=== PATIENT | female | born 1990 | race Caucasian/White ===

== ENCOUNTER 2018-02-17 23:02 | Observation (INO) | payer SELFPAY ==
--- NOTE | 2018-02-17 23:39 | ER Document Report ---
ED General - General Chief Complaint: Abdominal Pain Stated Complaint: ABDOMINAL PAIN Time Seen by Provider: 02/17/18 23:26 Mode of Arrival: Ambulatory Information source: Patient Notes: 27-year-old female with no reported past medical history presents with complaint of sudden onset of right lower quadrant pain that occurred 45 minutes prior to arrival. Patient states that she is currently moving and they have been moving and packing all day. She states that just prior to arrival she felt a sharp, stabbing pain that doubled her over in pain. Patient denies any prior similar symptoms. She denies any fever, chills, nausea, vomiting, dysuria , hematuria, vaginal discharge. Patient is currently sexually active with her and not on control. Her last menstrual period was 02/06/2018. She has not tried any medication for this. - HPI Onset: Just prior to arrival Onset/Duration: Sudden Quality of pain: Stabbing Severity: Moderate Pain Level: 2 Associated symptoms: Nausea. denies: Chest pain, Diarrhea, Fever, Vomiting, Shortness of breath Exacerbated by: Movement Relieved by: Remaining still Similar symptoms previously: No Recently seen / treated by doctor: No - Related Data Allergies/Adverse Reactions: naproxen [From Aleve] Allergy (Verified 02/17/18 23:08) Penicillins Allergy (Verified 02/17/18 23:08) Past Medical History - General Information source: Patient, Relative, [facility] Records - Social History Smoking Status: Never Smoker Frequency of alcohol use: Occasional Drug Abuse: None Lives with: Spouse/Significant other Family History: Reviewed & Not Pertinent Patient has suicidal ideation: No Patient has homicidal ideation: No - Medical History Medical History: Negative Review of Systems - Review of Systems Constitutional: denies: Fever, Weakness EENT: denies: Blurred vision Cardiovascular: denies: Chest pain, Palpitations, Syncope Respiratory: denies: Cough, Short of breath Gastrointestinal: Abdominal pain, Nausea. denies: Vomiting, Constipation Genitourinary: denies: Dysuria, Discharge, Flank pain, Hematuria Female Genitourinary: denies: Vaginal discharge, Vaginal bleeding Musculoskeletal: denies: Back pain Skin: denies: Rash Hematologic/Lymphatic: denies: Easy bruising Neurological/Psychological: denies: Confusion, Lost consciousness, Headaches -: Yes All other systems reviewed and negative Physical Exam - Vital signs Vitals: Temp Pulse Resp BP Pulse Ox 98.3 F 79 20 134/75 H 99 02/17/18 23:18 02/17/18 23:18 02/17/18 23:18 02/17/18 23:18 02/17/18 23:18 - Notes Notes: PHYSICAL EXAMINATION: GENERAL: Well-appearing, well-nourished and in no acute distress. HEAD: Atraumatic, normocephalic. EYES: Pupils equal round and reactive to light, extraocular movements intact, conjunctiva are normal. ENT: Nares patent, oropharynx clear without exudates. Moist mucous membranes. NECK: Normal range of motion, supple without lymphadenopathy LUNGS: Breath sounds clear to auscultation bilaterally and equal. No wheezes rales or rhonchi. HEART: Regular rate and rhythm without murmurs ABDOMEN: Soft, nontender, nondistended abdomen. No guarding, no rebound. No masses appreciated. Female : No external vaginal lesions, thick white discharge, no vaginal lacerations, no cervical motion tenderness. No adnexal tenderness or fullness. no vaginal bleeding. Os closed. Musculoskeletal: Normal range of motion, no pitting or edema. No cyanosis. NEUROLOGICAL: Cranial nerves grossly intact. Normal speech, normal gait. Normal sensory, motor exams PSYCH: Normal mood, normal affect. SKIN: Warm, Dry, normal turgor, no rashes or lesions noted. Course - Re-evaluation Re-evalutation: Laboratory 02/18/18 02/18/18 02/18/18 00:09 00:09 00:09 Urine Color YELLOW Urine Appearance SLIGHTLY-CLOUDY Urine pH 5.0 Ur Specific [place] 1.019 Urine Protein NEGATIVE Urine Glucose (UA) NEGATIVE Urine Ketones TRACE H Urine Blood SMALL H Urine Nitrite NEGATIVE Urine Bilirubin NEGATIVE Urine Urobilinogen NEGATIVE Ur Leukocyte Esterase TRACE H Urine WBC (Auto) 1 Urine RBC (Auto) 4 Urine Bacteria (Auto) TRACE Squamous Epi Cells Auto 3 Urine Mucus (Auto) RARE Urine Ascorbic Acid NEGATIVE Urine HCG, Qual POSITIVE H Trichomonas (Wet Prep) NO TRICHOMONAS SEEN Vaginal WBC RARE WBCS SEEN Vaginal Yeast NO YEAST SEEN Chlamydia DNA (PCR) NOT DETECTED N.gonorrhoeae DNA (PCR) NOT DETECTED Laboratory 02/18/18 02/18/18 02/18/18 00:09 00:09 00:09 WBC RBC Hgb Hct MCV MCH MCHC RDW Plt Count Seg Neutrophils % Lymphocytes % Monocytes % Eosinophils % Basophils % Absolute Neutrophils Absolute Lymphocytes Absolute Monocytes Absolute Eosinophils Absolute Basophils Beta HCG, Quant Total Beta HCG Urine Color YELLOW Urine Appearance SLIGHTLY-CLOUDY Urine pH 5.0 Ur Specific [place] 1.019 Urine Protein NEGATIVE Urine Glucose (UA) NEGATIVE Urine Ketones TRACE H Urine Blood SMALL H Urine Nitrite NEGATIVE Urine Bilirubin NEGATIVE Urine Urobilinogen NEGATIVE Ur Leukocyte Esterase TRACE H Urine WBC (Auto) 1 Urine RBC (Auto) 4 Urine Bacteria (Auto) TRACE Squamous Epi Cells Auto 3 Urine Mucus (Auto) RARE Urine Ascorbic Acid NEGATIVE Urine HCG, Qual POSITIVE H Trichomonas (Wet Prep) NO TRICHOMONAS SEEN Vaginal WBC RARE WBCS SEEN Vaginal Yeast NO YEAST SEEN Chlamydia DNA (PCR) NOT DETECTED N.gonorrhoeae DNA (PCR) NOT DETECTED Blood Type Antibody Screen Rhogam Indicated 02/18/18 02/18/18 02/18/18 02:55 02:55 02:55 WBC 8.7 RBC 4.20 Hgb 12.7 Hct 35.6 L MCV 85 MCH 30.3 MCHC 35.8 RDW 12.8 Plt Count 240 Seg Neutrophils % 62.2 Lymphocytes % 29.4 Monocytes % 7.5 Eosinophils % 0.5 Basophils % 0.4 Absolute Neutrophils 5.4 Absolute Lymphocytes 2.6 Absolute Monocytes 0.7 Absolute Eosinophils 0.0 Absolute Basophils 0.0 Beta HCG, Quant 1021.20 H Total Beta HCG POSITIVE Urine Color Urine Appearance Urine pH Ur Specific [place] Urine Protein Urine Glucose (UA) Urine Ketones Urine Blood Urine Nitrite Urine Bilirubin Urine Urobilinogen Ur Leukocyte Esterase Urine WBC (Auto) Urine RBC (Auto) Urine Bacteria (Auto) Squamous Epi Cells Auto Urine Mucus (Auto) Urine Ascorbic Acid Urine HCG, Qual Trichomonas (Wet Prep) Vaginal WBC Vaginal Yeast Chlamydia DNA (PCR) N.gonorrhoeae DNA (PCR) Blood Type Cancelled Antibody Screen Rhogam Indicated Cancelled 02/18/18 02:55 WBC RBC Hgb Hct MCV MCH MCHC RDW Plt Count Seg Neutrophils % Lymphocytes % Monocytes % Eosinophils % Basophils % Absolute Neutrophils Absolute Lymphocytes Absolute Monocytes Absolute Eosinophils Absolute Basophils Beta HCG, Quant Total Beta HCG Urine Color Urine Appearance Urine pH Ur Specific [place] Urine Protein Urine Glucose (UA) Urine Ketones Urine Blood Urine Nitrite Urine Bilirubin Urine Urobilinogen Ur Leukocyte Esterase Urine WBC (Auto) Urine RBC (Auto) Urine Bacteria (Auto) Squamous Epi Cells Auto Urine Mucus (Auto) Urine Ascorbic Acid Urine HCG, Qual Trichomonas (Wet Prep) Vaginal WBC Vaginal Yeast Chlamydia DNA (PCR) N.gonorrhoeae DNA (PCR) Blood Type A POSITIVE Antibody Screen NEGATIVE Rhogam Indicated RHOGAM NOT INDICATED Transvaginal US 02/18/18 00:38 IMPRESSION: Possible 1.5 cm ectopic gestational sac of the right broad ligament. No intrauterine gestation confirmed. Surgical consultation advised. 27-year-old female with no reported past medical history presented with sudden onset of right lower quadrant pain that occurred just prior to arrival. Vital signs reviewed upon arrival. Patient is mildly hypertensive, afebrile and not hypoxic. She does not appear toxic or dehydrated. She is in no acute distress. Pelvic exam was performed and significant for thick white discharge, no vaginal bleeding, ox is closed, no cervical motion tenderness. Urine test was positive. Transvaginal ultrasound was obtained and is significant for a possible 1.5 cm ectopic gestational sac of the right broad ligament. No intrauterine gestation confirmed. Surgical consultation advised. 02/18/18 02:00 02/18/18 02:00 02/18/18 02:[address] Burrell from [facility] concerning the patient's ultrasound which shows possible ectopic along the right broad ligament. SHe will evaluate the patient and is requesting Beta Quant which is pending 02/18/18 03:16 Beta quant, CBC, RhoGam series pending. Beta Quant only 1000. Patient is rh+. CBC is without leukocytosis, urinalysis and pelvic swabs wnl. 02/18/18 08:25 Dr. Burrell evaluated the patient and will admit for serial abdominal exams and repeat ultrasound in am. Patient agreeable to admission. - Vital Signs Vital signs: Temp Pulse Resp BP Pulse Ox 98.3 F 84 18 129/70 H 99 02/18/18 07:55 02/18/18 07:55 02/18/18 07:55 02/18/18 07:55 02/18/18 07:55 - Laboratory Result Diagrams: 02/18/18 02:55 Laboratory results interpreted by me: 02/18/18 02/18/18 02/18/18 00:09 02:55 02:55 Hct 35.6 L Beta HCG, Quant 1021.20 H Urine Ketones TRACE H Urine Blood SMALL H Ur Leukocyte Esterase TRACE H Urine HCG, Qual POSITIVE H - Diagnostic Test Radiology reviewed: Image reviewed, Reports reviewed Discharge - Discharge Clinical Impression: Abdominal pain during in first trimester Disposition: ADMITTED INPATIENT Admitting Provider: [facility] Admitted: Medical Floor
[2018-02-17] MEDS ORDERED: MORPHINE SULFATE 10 MG/ML INJ IV ONE (23:58)
[2018-02-17] MEDS ORDERED: ONDANSETRON 4 MG TAB.RAPDIS PO ONE (23:59)
[2018-02-18] MEDS ORDERED: MORPHINE SULFATE 10 MG/ML INJ IM ONE (00:08)
[2018-02-18 00:23] LABS: T.VAGINALIS (WET MOUNT) NO TRICHOMONAS SEEN; WBCS (WET MOUNT) RARE WBCS SEEN; YEAST (WET MOUNT) NO YEAST SEEN
[2018-02-18 00:26] LABS: APPEARANCE,URINE SLIGHTLY-CLOUDY; BILIRUBIN,URINE NEGATIVE (NEGATIVE); COLOR,URINE YELLOW; GLUCOSE, URINE NEGATIVE (NEGATIVE); KETONES,URINE TRACE mg/dL (NEGATIVE); LEUKOCYTE ESTERASE,URINE TRACE (NEGATIVE); NITRITE,URINE NEGATIVE (NEGATIVE); PROTEIN,URINE NEGATIVE (NEGATIVE); URINE SPECIFIC GRAVITY 1.019; UROBILINOGEN,URINE NEGATIVE mg/dL (<2.0)
[2018-02-18 01:48] LABS: CHLAM PCR NOT DETECTED (NOT DETECT); GON PCR NOT DETECTED (NOT DETECT)
--- NOTE | 2018-02-18 02:15 | RADIOLOGY REPORT (SQ) ---
EXAM DESCRIPTION: US TRANSVAGINAL CLINICAL HISTORY: 27 years Female, pain with Comparison: None. TECHNIQUE: Transvaginal. LIMITATIONS: None. FINDINGS: No intrauterine gestation confirmed. There is a 1.5 x 1.3 x 1.2 cm complex cystic structure in the right adnexal fossa which appears between a 3.4 cm right ovary and uterus. Endometrial stripe thickness is 1.1 cm. 7.4 cm uterus, 2.1 cm cervical length, 3.4 cm right kidney, 2.8 cm left kidney appear unremarkable. Small free fluid in the pelvis. IMPRESSION: Possible 1.5 cm ectopic gestational sac of the right broad ligament. No intrauterine gestation confirmed. Surgical consultation advised.
[2018-02-18 03:27] LABS: ABSOLUTE LYMPHOCYTES (AUTO) 2.6 10^3/uL (0.5-4.7); ABSOLUTE MONOCYTES (AUTO) 0.7 10^3/uL (0.1-1.4); ABSOLUTE NEUT (AUTO) 5.4 10^3/uL (1.7-8.2); BASOPHILS % (AUTO) 0.4 % (0-2); EOSINOPHILS % (AUTO) 0.5 % (0-6); HEMATOCRIT 35.6 % (36.0-47.0); HEMOGLOBIN 12.7 g/dL (12.0-15.5); LYMPHOCYTES % (AUTO) 29.4 % (13-45); MEAN CORPUSCULAR HEMOGLOBIN 30.3 pg (27.0-33.4); MEAN CORPUSCULAR HGB CONC 35.8 g/dL (32.0-36.0); MEAN CORPUSCULAR VOLUME 85 fl (80-97); MONOCYTES % (AUTO) 7.5 % (3-13); PLATELET COUNT 240 10^3/uL (150-450); RED CELL DISTRIBUTION WIDTH 12.8 % (11.5-14.0); SEGMENTED NEUTROPHILS % (AUTO) 62.2 % (42-78); TOTAL CELLS COUNTED % (AUTO) 100 %; WHITE BLOOD COUNT 8.7 10^3/uL (4.0-10.5)
--- NOTE | 2018-02-18 04:35 | PDOC H&P ---
History of Present Illness Admission Date/PCP: 02/18/2018 Patient complains of: right adnexal pain, + UPT History of Present Illness: CYNTHIA RIOS is a 27 year old female who presented to the ER with sudden onset of right abdominal pain while moving. She and her partner are moving to [place] since he has been discharged from the . She reports this occurred at approx 2200 last evening and now has resolved after being given pain medications. She has never had pain like this before. She and her report that this is a very desires . LMP 02/03-02/06 (menses prior to that was 01/06) which places her either 2 wks or 6wks based off her reported menses. She denies vaginal bleeding. She denies n/v. She denies fevers/chills. Past Medical History LMP: 02/03/2018 Gynecological Infection: No 1 Obstetrical History: Current Past Surgical History Past Surgical History: Reports: None Social History Information Source: Patient Lives with: Spouse/Significant other Smoking Status: Never Smoker Frequency of Alcohol Use: None Hx Recreational Drug Use: No Drugs: None Hx Prescription Drug Abuse: No - Advance Directive Resuscitation Status: Full Code Family History Family History: Reviewed & Not Pertinent Parental Family History Reviewed: No Children Family History Reviewed: NA Sibling(s) Family History Reviewed.: NA Medication/Allergy Allergies/Adverse Reactions: naproxen [From Aleve] Allergy (Verified 02/17/18 23:08) Penicillins Allergy (Verified 02/17/18 23:08) Review of Systems Constitutional: ABSENT: fever(s), headache(s) Cardiovascular: ABSENT: chest pain, dyspnea on exertion, edema, orthropnea, palpitations Gastrointestinal: ABSENT: abdominal pain, constipation, diarrhea, hematemesis, hematochezia, nausea, vomiting Genitourinary: ABSENT: dysuria, hematuria Integumentary: ABSENT: rash, wounds Neurological: ABSENT: abnormal gait, abnormal speech, confusion, dizziness, focal weakness, syncope Hematologic/Lymphatic: ABSENT: easy bleeding, easy bruising Physical Exam - Physical Exam Vital Signs: Temp Pulse Resp BP Pulse Ox 98.3 F 79 20 134/75 H 99 02/17/18 23:18 02/17/18 23:18 02/17/18 23:18 02/17/18 23:18 02/17/18 23:18 Intake & Output 02/16/18 02/17/18 02/18/18 06:59 06:59 06:59 Weight 76.1 kg General appearance: PRESENT: no acute distress, well-developed, well-nourished Head exam: PRESENT: atraumatic, normocephalic Respiratory exam: PRESENT: clear to auscultation natasha, decreased breath sounds, symmetrical, unlabored Cardiovascular exam: PRESENT: RRR. ABSENT: diastolic murmur, rubs, systolic murmur Pulses: PRESENT: normal dorsalis pedis pul, +2 pedal pulses bilateral GI/Abdominal exam: PRESENT: normal bowel sounds, soft. ABSENT: distended, guarding, mass, organolmegaly, rebound, tenderness Rectal exam: PRESENT: deferred Extremities exam: PRESENT: full ROM. ABSENT: calf tenderness, clubbing, pedal edema Neurological exam: PRESENT: alert, awake, oriented to person, oriented to place , oriented to time, oriented to situation, CN II-XII grossly intact. ABSENT: motor sensory deficit Psychiatric exam: PRESENT: appropriate affect, normal mood. ABSENT: homicidal ideation, suicidal ideation Skin exam: PRESENT: dry, intact, warm. ABSENT: cyanosis, rash Result Laboratory Results: 02/18/18 02:55 02/18/18 02/18/18 02/18/18 00:09 02:55 02:55 WBC 8.7 RBC 4.20 Hgb 12.7 Hct 35.6 L MCV 85 MCH 30.3 MCHC 35.8 RDW 12.8 Plt Count 240 Seg Neutrophils % 62.2 Lymphocytes % 29.4 Monocytes % 7.5 Eosinophils % 0.5 Basophils % 0.4 Absolute Neutrophils 5.4 Absolute Lymphocytes 2.6 Absolute Monocytes 0.7 Absolute Eosinophils 0.0 Absolute Basophils 0.0 Urine Color YELLOW Urine Appearance SLIGHTLY-CLOUDY Urine pH 5.0 Ur Specific [place] 1.019 Urine Protein NEGATIVE Urine Glucose (UA) NEGATIVE Urine Ketones TRACE H Urine Blood SMALL H Urine Nitrite NEGATIVE Ur Leukocyte Esterase TRACE H Urine WBC (Auto) 1 Urine RBC (Auto) 4 Blood Type Cancelled Antibody Screen 02/18/18 02:55 WBC RBC Hgb Hct MCV MCH MCHC RDW Plt Count Seg Neutrophils % Lymphocytes % Monocytes % Eosinophils % Basophils % Absolute Neutrophils Absolute Lymphocytes Absolute Monocytes Absolute Eosinophils Absolute Basophils Urine Color Urine Appearance Urine pH Ur Specific [place] Urine Protein Urine Glucose (UA) Urine Ketones Urine Blood Urine Nitrite Ur Leukocyte Esterase Urine WBC (Auto) Urine RBC (Auto) Blood Type A POSITIVE Antibody Screen NEGATIVE Impressions: Transvaginal US 02/18/18 00:38 IMPRESSION: Possible 1.5 cm ectopic gestational sac of the right broad ligament. No intrauterine gestation confirmed. Surgical consultation advised. Status: Image reviewed by me Assessment & Plan - Diagnosis (1) Abdominal pain during in first trimester Is this a current diagnosis for this admission?: Yes Plan: Pt with very early . US reveals complex structure in adnexa which could be complex right adnexal cyst or right adnexal ectopic. BHCG is approx 1000 Pt is not currently in pain as she has received narcotics in ER for pain. Exam is currently very benign. patient and both report that this is a desired and want more definitive information prior to performing treatment such as MTX or surgery. Reviewed with both patient and partner that depending on treatment MTX or surgery that it would not be recommended that they leave the area until at the very least 2 weeks postop and until hormone levels are negative. Reviewed risks of ectopic: hemorrhage, loss of ovary, need transfusion, life threatening. Patient and considered leaving the area as they were supposed to move to [place] today. However, after discussion of the risks and need for more information and close f/u (including serial abdominal exams today to evaluate her returning pain). Reviewed with patient that depending on findings and her exam that she may be able to be managed as an outpatient with MTX or outpatient surgery. Again patient and desire more definitive information prior to proceeding with treatment at this time as this is a very desired Will admit for observation today. Repeat labs at noon. Repeat labs in am and Repeat US in am - may need to repeat sooner depending on symptoms. - Time Time Spent: 30 to 50 Minutes Critical Time spent with patient: 15-24 minutes Medications reviewed and adjusted accordingly: No Anticipated discharge: Home Within: within 48 hours - Inpatient Certification Based on my medical assessment, after consideration of the patient's comorbidities, presenting symptoms, or acuity I expect that the services needed warrant INPATIENT care.: Yes I certify that my determination is in accordance with my understanding of Medicare's requirements for reasonable and necessary INPATIENT services [42 CFR 412.3e].: Yes Medical Necessity: Need Close Monitoring Due to Risk of Patient Decompensation Post Hospital Care: D/C Foreign Correspondent Documentation - Plan Summary Plan Summary: Needs serial abd exams and serial labs.
[2018-02-18] MEDS ORDERED: DEXTROSE 50%-WATER 25 GM/50 ML DISP.SYRIN IV PRN ×2 (08:43)
[2018-02-18] MEDS ORDERED: GLUCAGON,HUMAN RECOMB 1 MG INJ SUBCUT PRN (08:43)
[2018-02-18] MEDS ORDERED: DEXTROSE 40% GEL 15 GM TUBE PO PRN ×2 (08:43)
[2018-02-18] MEDS ORDERED: ACETAMINOPHEN 325 MG TABLET PO ONE (09:30)
--- NOTE | 2018-02-18 14:01 | RADIOLOGY REPORT (SQ) ---
EXAM DESCRIPTION: U/S OB TRANSVAG W/DOPPLER COMPLETED DATE/TIME: 02/18/2018 1:49 pm REASON FOR STUDY: wheelchair COMPARISON: 02/18/2018 earlier. TECHNIQUE: Transvaginal static and realtime grayscale images acquired of the pelvis. Additional david cted spectral and color Doppler images recorded. All images stored on PACs. [facility] [place].2 LIMITATIONS: None. FINDINGS: UTERUS: No visualized intrauterine . RIGHT ADNEXA: Normal ovary with normal vascular flow. No adnexal free fluid. Thick-walled round cystic lesion close to the right ovary, not clearly involving it. Not significant ly hypervascular, although ectopic remains in the differential. No change compared to prior. The le florentino measures up to 1.6 cm maximally. LEFT ADNEXA: Normal ovary with normal vascular flow. No adnexal free fluid. No adnexal masses. FREE FLUID: None. OTHER: No other significant finding. IMPRESSION: No visualized intrauterine gestation. Thick-walled cystic mass adjacent to the right ov aletha as before. No suggestion of significant change since early this morning on prior study. Ectopic remains in the differential. TECHNICAL DOCUMENTATION: JOB ID: [id number] [employer]- All Rights Reserved Reading location - IP/workstation name: [email or web address]
[2018-02-18 14:16] LABS: ABSOLUTE BASOPHILS # (AUTO) 0.1 10^3/uL (0.0-0.2); ABSOLUTE LYMPHOCYTES (AUTO) 1.9 10^3/uL (0.5-4.7); ABSOLUTE MONOCYTES (AUTO) 0.7 10^3/uL (0.1-1.4); ABSOLUTE NEUT (AUTO) 4.3 10^3/uL (1.7-8.2); BASOPHILS % (AUTO) 0.7 % (0-2); EOSINOPHILS % (AUTO) 0.5 % (0-6); HEMATOCRIT 35.8 % (36.0-47.0); HEMOGLOBIN 12.7 g/dL (12.0-15.5); LYMPHOCYTES % (AUTO) 27.6 % (13-45); MEAN CORPUSCULAR HEMOGLOBIN 30.1 pg (27.0-33.4); MEAN CORPUSCULAR HGB CONC 35.4 g/dL (32.0-36.0); MEAN CORPUSCULAR VOLUME 85 fl (80-97); MONOCYTES % (AUTO) 10.2 % (3-13); PLATELET COUNT 245 10^3/uL (150-450); RED BLOOD COUNT 4.22 10^6/uL (3.72-5.28); RED CELL DISTRIBUTION WIDTH 12.6 % (11.5-14.0); TOTAL CELLS COUNTED % (AUTO) 100 %
[2018-02-18 14:42] LABS: ALANINE AMINOTRANSFERASE 37 U/L (9-52); ALBUMIN 4.1 g/dL (3.5-5.0); ALKALINE PHOSPHATASE 62 U/L (38-126); ANION GAP 12 (5-19); ASPARTATE AMINO TRANSFERASE 24 U/L (14-36); BILIRUBIN,DIRECT 0.3 mg/dL (0.0-0.4); BLOOD UREA NITROGEN 8 mg/dL (7-20); CALCIUM 9.6 mg/dL (8.4-10.2); CARBON DIOXIDE 22 mmol/L (22-30); CHLORIDE 108 mmol/L (98-107); GLUCOSE 91 mg/dL (75-110); SODIUM 141.8 mmol/L (137-145); TOTAL PROTEIN 6.9 g/dL (6.3-8.2)
[2018-02-18] MEDS: HYDROCODONE/ACETAMINOPHEN 5-325 MG TABLET PO PRN (18:37)
[2018-02-19] MEDS: HYDROCODONE/ACETAMINOPHEN 5-325 MG TABLET PO PRN ×3 (00:21→12:51)
--- NOTE | 2018-02-19 01:51 | PDOC PROGRESS REPORT ---
Subjective Progress Note for:: 02/18/18 - Late entry Subjective:: In to evaluate pt with c/o increased pain. Pt states pain came and went as before but not as severe as time of admission. No pain now. Received [place] x 1. Reason For Visit: POSS EPTOPIC VS COMPLEX RIGHT ADNEXAL CYST Physical Exam - Physical Exam Vital Signs: Temp Pulse Resp BP Pulse Ox 98.4 F 79 18 120/76 98 02/18/18 23:40 02/18/18 23:40 02/18/18 23:40 02/18/18 23:40 02/18/18 23:40 Intake & Output 02/17/18 02/18/18 02/19/18 06:59 06:59 06:59 Intake Total 0 500 Balance 0 500 General appearance: PRESENT: no acute distress Head exam: PRESENT: atraumatic, normocephalic GI/Abdominal exam: PRESENT: soft, other - no tenderness, no guarding Result Laboratory Results: 02/18/18 13:27 02/18/18 13:27 02/18/18 02/18/18 13:27 13:27 WBC 7.0 RBC 4.22 Hgb 12.7 Hct 35.8 L MCV 85 MCH 30.1 MCHC 35.4 RDW 12.6 Plt Count 245 Seg Neutrophils % 61.0 Lymphocytes % 27.6 Monocytes % 10.2 Eosinophils % 0.5 Basophils % 0.7 Absolute Neutrophils 4.3 Absolute Lymphocytes 1.9 Absolute Monocytes 0.7 Absolute Eosinophils 0.0 Absolute Basophils 0.1 Sodium 141.8 Potassium 4.0 Chloride 108 H Carbon Dioxide 22 Anion Gap 12 BUN 8 Creatinine 0.64 Est GFR ( Amer) > 60 Est GFR (Non-Af Amer) > 60 Glucose 91 Calcium 9.6 Total Bilirubin 1.0 AST 24 ALT 37 Alkaline Phosphatase 62 Total Protein 6.9 Albumin 4.1 Impressions: Transvaginal US 02/18/18 00:38 IMPRESSION: Possible 1.5 cm ectopic gestational sac of the right broad ligament. No intrauterine gestation confirmed. Surgical consultation advised. Assessment & Plan - Diagnosis (1) Right lower quadrant abdominal pain Is this a current diagnosis for this admission?: Yes Plan: Possible ectopic , although not confirmed at this time. Last quant 1000 <24hrs ago. Uls equivocal. Disc POC with pt. Her pain is intermittent and almost completely relieved by small amt of oral analgesia, which is not expected in the face of an ectopic. Pt understands that she will likely be in the hospital until a repeat quant can be drawn. Repeat uls to be done today. She continues to not want any intervention until a is/is not confirmed.
[2018-02-19 06:27] LABS: ABSOLUTE BASOPHILS # (AUTO) 0.1 10^3/uL (0.0-0.2); ABSOLUTE EOSINOPHILS # (AUTO) 0.1 10^3/uL (0.0-0.6); ABSOLUTE LYMPHOCYTES (AUTO) 2.5 10^3/uL (0.5-4.7); ABSOLUTE MONOCYTES (AUTO) 0.7 10^3/uL (0.1-1.4); ABSOLUTE NEUT (AUTO) 3.9 10^3/uL (1.7-8.2); BASOPHILS % (AUTO) 0.7 % (0-2); EOSINOPHILS % (AUTO) 1.8 % (0-6); HEMATOCRIT 37.2 % (36.0-47.0); HEMOGLOBIN 13.3 g/dL (12.0-15.5); LYMPHOCYTES % (AUTO) 34.7 % (13-45); MEAN CORPUSCULAR HEMOGLOBIN 30.5 pg (27.0-33.4); MEAN CORPUSCULAR HGB CONC 35.9 g/dL (32.0-36.0); MEAN CORPUSCULAR VOLUME 85 fl (80-97); MONOCYTES % (AUTO) 9.4 % (3-13); PLATELET COUNT 266 10^3/uL (150-450); RED BLOOD COUNT 4.38 10^6/uL (3.72-5.28); RED CELL DISTRIBUTION WIDTH 12.5 % (11.5-14.0); SEGMENTED NEUTROPHILS % (AUTO) 53.4 % (42-78); TOTAL CELLS COUNTED % (AUTO) 100 %; WHITE BLOOD COUNT 7.3 10^3/uL (4.0-10.5)
[2018-02-19] MEDS ORDERED: METHOTREXATE SODIUM IM PRN (11:54)
[2018-02-19] MEDS ORDERED: DISPOSABLE IM PRN (11:54)
--- NOTE | 2018-02-19 12:37 | PDOC PROGRESS REPORT ---
Subjective Progress Note for:: 02/19/18 Subjective:: right adnexal discomfort, none now, denies n/v/d. tolerating po and ambulating without difficulty. Reason For Visit: POSS ECTOPIC VS COMPLEX RIGHT ADNEXAL CYST Physical Exam - Physical Exam Vital Signs: Temp Pulse Resp BP Pulse Ox 98.2 F 97 18 116/75 96 02/19/18 07:12 02/19/18 07:12 02/19/18 07:12 02/19/18 07:12 02/19/18 07:12 Intake & Output 02/18/18 02/19/18 02/20/18 06:59 06:59 06:59 Intake Total 0 500 Balance 0 500 Weight 74.4 kg General appearance: PRESENT: no acute distress, well-developed, well-nourished Head exam: PRESENT: atraumatic, normocephalic Respiratory exam: PRESENT: clear to auscultation natasha, symmetrical, unlabored Cardiovascular exam: PRESENT: RRR. ABSENT: diastolic murmur, rubs, systolic murmur GI/Abdominal exam: PRESENT: normal bowel sounds, soft. ABSENT: distended, guarding, mass, organolmegaly, rebound, tenderness Rectal exam: PRESENT: deferred Extremities exam: PRESENT: full ROM. ABSENT: calf tenderness, clubbing, pedal edema Neurological exam: PRESENT: alert, awake, oriented to person, oriented to place , oriented to time, oriented to situation, CN II-XII grossly intact. ABSENT: motor sensory deficit Psychiatric exam: PRESENT: appropriate affect, normal mood. ABSENT: homicidal ideation, suicidal ideation Result Laboratory Results: 02/19/18 05:00 02/18/18 13:27 02/18/18 02/18/18 02/19/18 13:27 13:27 05:00 WBC 7.0 7.3 RBC 4.22 4.38 Hgb 12.7 13.3 Hct 35.8 L 37.2 MCV 85 85 MCH 30.1 30.5 MCHC 35.4 35.9 RDW 12.6 12.5 Plt Count 245 266 Seg Neutrophils % 61.0 53.4 Lymphocytes % 27.6 34.7 Monocytes % 10.2 9.4 Eosinophils % 0.5 1.8 Basophils % 0.7 0.7 Absolute Neutrophils 4.3 3.9 Absolute Lymphocytes 1.9 2.5 Absolute Monocytes 0.7 0.7 Absolute Eosinophils 0.0 0.1 Absolute Basophils 0.1 0.1 Sodium 141.8 Potassium 4.0 Chloride 108 H Carbon Dioxide 22 Anion Gap 12 BUN 8 Creatinine 0.64 Est GFR ( Amer) > 60 Est GFR (Non-Af Amer) > 60 Glucose 91 Calcium 9.6 Total Bilirubin 1.0 AST 24 ALT 37 Alkaline Phosphatase 62 Total Protein 6.9 Albumin 4.1 Impressions: Transvaginal US 02/18/18 00:38 IMPRESSION: Possible 1.5 cm ectopic gestational sac of the right broad ligament. No intrauterine gestation confirmed. Surgical consultation advised. Status: Imported from PACS Assessment & Plan - Diagnosis (1) Abdominal pain during in first trimester Is this a current diagnosis for this admission?: Yes Plan: Pt with very early approx 2 to 6wks by dates on admission. She was admitted for observation yesterday. Repeat labs at noon ordered and stable. Normal CMP and normal hb/Hct. Reviewed with patient at admission regarding complex adnexal structure in right adnexa that could be right ovarian cyst vs right ectopic. Pt advised re: treatment options on admission if ectopic: AMA/refuse treatment, methotrexate, Surgery. This was a strongly desired therefore they only wanted conservative management. (2) Ectopic without intrauterine Qualifiers: Location of ectopic : tubal Laterality: right Qualified Code(s) : O00.101 - Right tubal without intrauterine Is this a current diagnosis for this admission?: Yes Plan: US reveals complex structure in adnexa which could be complex right adnexal cyst or right adnexal ectopic and no change on f/u US ordered later yesterday. BHCG 1000 on admission and now is 300. Reviewed with patient that this is consistent with abnormal and based on US findings of complex adnexal structure - dx is ectopic Pt is not currently in pain as she has received narcotics in ER for pain. Exam is currently very benign. patient and both report that this was a desired and wanted more definitive information prior to performing treatment such as MTX or surgery- now in light of persistent adnexal mass and abnormal decrease in BHCG are comfortable with dx of Ectopic . Reviewed with both patient and partner that depending on treatment MTX or surgery that it would not be recommended that they leave the area until at the very least 2 weeks postop and until hormone levels are negative. Reviewed risks of ectopic: hemorrhage, loss of ovary, need transfusion, life threatening. Patient and considered leaving the area as they were supposed to move to [place] yesterday. However, after discussion of the risks they have decided to stay in the area and his family are coming down to assist them. Reviewed findings and risk/benefits/alternatives with patient and and family via phone. RN Maty in room for discussion. They desire to proceed with MTX and will f/u in office on Tue for Repeat BHCG and repeat MTX dose per 2 dose protocol. Will give norco for pain - rx written. Discharge to home after MTX and 1 hour observation post MTX injection. Based off BSA - 50mg/m2 then 91mg MTX today. - Time Time Spent with patient: 35 or more minutes Medications reviewed and adjusted accordingly: Yes Anticipated discharge: Home Within: within 24 hours - Inpatient Certification Based on my medical assessment, after consideration of the patient's comorbidities, presenting symptoms, or acuity I expect that the services needed warrant INPATIENT care.: No I certify that my determination is in accordance with my understanding of Medicare's requirements for reasonable and necessary INPATIENT services [42 CFR 412.3e].: No Post Hospital Care: D/C Break Out Man Documentation - Plan Summary Plan Summary: needs MTX then able to discharge
--- NOTE | 2018-02-19 12:43 | PDOC DISCHARGE SUMMARY ---
General - Admit/Disc Date/PCP Admission Date/Primary Care Provider: 02/18/18 04:17 Discharge Date: 02/19/18 - Discharge Diagnosis (1) Abdominal pain during in first trimester Is this a current diagnosis for this admission?: Yes Summary: Pt with very early approx 2 to 6wks by dates on admission. She was admitted for observation yesterday. Repeat labs at noon ordered and stable. Normal CMP and normal hb/Hct. Reviewed with patient at admission regarding complex adnexal structure in right adnexa that could be right ovarian cyst vs right ectopic. Pt advised re: treatment options on admission if ectopic: AMA/refuse treatment, methotrexate, Surgery. This was a strongly desired therefore they only wanted conservative management. (2) Ectopic without intrauterine Is this a current diagnosis for this admission?: Yes Summary: US reveals complex structure in adnexa which could be complex right adnexal cyst or right adnexal ectopic and no change on f/u US ordered later yesterday. BHCG 1000 on admission and now is 300. Reviewed with patient that this is consistent with abnormal and based on US findings of complex adnexal structure - dx is ectopic Pt is not currently in pain as she has received narcotics in ER for pain. Exam is currently very benign. patient and both report that this was a desired and wanted more definitive information prior to performing treatment such as MTX or surgery- now in light of persistent adnexal mass and abnormal decrease in BHCG are comfortable with dx of Ectopic . Reviewed with both patient and partner that depending on treatment MTX or surgery that it would not be recommended that they leave the area until at the very least 2 weeks postop and until hormone levels are negative. Reviewed risks of ectopic: hemorrhage, loss of ovary, need transfusion, life threatening. Patient and considered leaving the area as they were supposed to move to [place] yesterday. However, after discussion of the risks they have decided to stay in the area and his family are coming down to assist them. Reviewed findings and risk/benefits/alternatives with patient and and family via phone. RN Maty in room for discussion. They desire to proceed with MTX and will f/u in office on Tue for Repeat BHCG and repeat MTX dose per 2 dose protocol. Will give norco for pain - rx written. Discharge to home after MTX and 1 hour observation post MTX injection. Based off BSA - 50mg/m2 then 91mg MTX today. - Additional Information Resuscitation Status: Full Code History of Present Illness History of Present Illness: CYNTHIA RIOS is a 27 year old female who presented to the ER with sudden onset of right abdominal pain while moving. She and her partner are moving to [place] since he has been discharged from the . She reports this occurred at approx 2200 last evening and now has resolved after being given pain medications. She has never had pain like this before. She and her report that this is a very desires . LMP 02/03-02/06 (menses prior to that was 01/06) which places her either 2 wks or 6wks based off her reported menses. She denies vaginal bleeding. She denies n/v. She denies fevers/chills. Admitted and BHCG Decreased to approx 300. Reviewed dx of Ectopic and she desires treatment of MTX. Hospital Course Hospital Course: CYNTHIA RIOS is a 27 year old female who presented to the ER with sudden onset of right abdominal pain while moving. She and her partner are moving to [place] since he has been discharged from the . She reports this occurred at approx 2200 last evening and now has resolved after being given pain medications. She has never had pain like this before. She and her report that this is a very desires . LMP 02/03-02/06 (menses prior to that was 01/06) which places her either 2 wks or 6wks based off her reported menses. She denies vaginal bleeding. She denies n/v. She denies fevers/chills. Admitted and BHCG Decreased to approx 300. Reviewed dx of Ectopic and she desires treatment of MTX. Physical Exam - Physical Exam Vital Signs: Temp Pulse Resp BP Pulse Ox 98.6 F 86 18 113/76 98 02/19/18 11:02 02/19/18 11:02 02/19/18 11:02 02/19/18 11:02 02/19/18 11:02 Intake & Output 02/18/18 02/19/18 02/20/18 06:59 06:59 06:59 Intake Total 0 500 Balance 0 500 Weight 74.4 kg General appearance: PRESENT: no acute distress, well-developed, well-nourished Head exam: PRESENT: atraumatic, normocephalic Respiratory exam: PRESENT: clear to auscultation natasha, symmetrical, unlabored Cardiovascular exam: PRESENT: RRR. ABSENT: diastolic murmur, rubs, systolic murmur Pulses: PRESENT: normal dorsalis pedis pul, +2 pedal pulses bilateral GI/Abdominal exam: PRESENT: normal bowel sounds, soft. ABSENT: distended, guarding, mass, organolmegaly, rebound, tenderness Rectal exam: PRESENT: deferred Extremities exam: PRESENT: full ROM. ABSENT: calf tenderness, clubbing, pedal edema Neurological exam: PRESENT: alert, awake, oriented to person, oriented to place , oriented to time, oriented to situation, CN II-XII grossly intact. ABSENT: motor sensory deficit Psychiatric exam: PRESENT: agitated Skin exam: PRESENT: dry, intact, warm. ABSENT: cyanosis, rash Result Laboratory Results: 02/19/18 05:00 02/18/18 13:27 02/18/18 02/18/18 02/19/18 13:27 13:27 05:00 WBC 7.0 7.3 RBC 4.22 4.38 Hgb 12.7 13.3 Hct 35.8 L 37.2 MCV 85 85 MCH 30.1 30.5 MCHC 35.4 35.9 RDW 12.6 12.5 Plt Count 245 266 Seg Neutrophils % 61.0 53.4 Lymphocytes % 27.6 34.7 Monocytes % 10.2 9.4 Eosinophils % 0.5 1.8 Basophils % 0.7 0.7 Absolute Neutrophils 4.3 3.9 Absolute Lymphocytes 1.9 2.5 Absolute Monocytes 0.7 0.7 Absolute Eosinophils 0.0 0.1 Absolute Basophils 0.1 0.1 Sodium 141.8 Potassium 4.0 Chloride 108 H Carbon Dioxide 22 Anion Gap 12 BUN 8 Creatinine 0.64 Est GFR ( Amer) > 60 Est GFR (Non-Af Amer) > 60 Glucose 91 Calcium 9.6 Total Bilirubin 1.0 AST 24 ALT 37 Alkaline Phosphatase 62 Total Protein 6.9 Albumin 4.1 Impressions: Transvaginal US 02/18/18 00:38 IMPRESSION: Possible 1.5 cm ectopic gestational sac of the right broad ligament. No intrauterine gestation confirmed. Surgical consultation advised. Status: Imported from PACS Plan Discharge Plan: Discharge to home after MTX
[2018-02-19 14:02] VITALS: BP 111/64
== END 2018-02-19 14:22 | disposition home or self-care (01) ==
LOC: ER 23:02 → EH 02-18 04:17 → INTOOBSV 02-18 04:17 → 2N 02-18 05:08
PROVIDERS: ADMIT Student in an Organized Health Care Education/Training Program; ATTEND Student in an Organized Health Care Education/Training Program
DX: O00.101 Right tubal pregnancy without intrauterine pregnancy (principal); R10.31 Right lower quadrant pain; O26.891 Other specified pregnancy related conditions, first trimester; R45.1 Restlessness and agitation
CPT/HCPCS: 99285; 96372; 86900; 86901; 36415 ×2; 87210; 86850; 84702 ×2; 85025 ×2; 81025; 80053; 81001; 87491; 87591; 76817; 93976; G0378 ×3; S0119; J9260; J2270; J3490

== ENCOUNTER → 2018-02-22 | Outpatient (CLI) | payer OTHER | LOC: OD 14:11 | PROVIDERS: ATTEND Obstetrics & Gynecology Gynecology | DX: O00.90 Unspecified ectopic pregnancy without intrauterine pregnancy (principal); Z3A.00 Weeks of gestation of pregnancy not specified | CPT/HCPCS: 36415; 84702 ==

== ENCOUNTER → 2018-02-27 | Outpatient (CLI) | payer OTHER | LOC: OD 12:47 | PROVIDERS: ATTEND Obstetrics & Gynecology Gynecology | DX: O00.90 Unspecified ectopic pregnancy without intrauterine pregnancy (principal); Z3A.00 Weeks of gestation of pregnancy not specified | CPT/HCPCS: 36415; 84702 ==

== ENCOUNTER → 2018-03-03 | Outpatient (CLI) | payer OTHER | LOC: OD 16:12 | PROVIDERS: ATTEND Student in an Organized Health Care Education/Training Program | DX: O00.90 Unspecified ectopic pregnancy without intrauterine pregnancy (principal); Z3A.00 Weeks of gestation of pregnancy not specified | CPT/HCPCS: 36415; 84702 ==